=== PATIENT | female | born 1980 | race Two or more races ===

== ENCOUNTER 2020-12-12 06:23 | Inpatient (IN) | payer BC, OTHER ==
[2020-12-12 07:33] VITALS: BMI 28.1
[2020-12-12] MEDS ORDERED: ONDANSETRON 4 MG/2 ML VIAL IVPUSH PRN (07:58)
[2020-12-12] MEDS ORDERED: ACETAMINOPHEN 325 MG TABLET (FP) PO PRN (07:58)
[2020-12-12] MEDS ORDERED: BUPIVACAINE HCL/PF 0.5% (5MG/ML) 10 ML VIAL ONE (08:09)
[2020-12-12] MEDS ORDERED: morphine SULFATE (PF) 1 MG/2 ML SYRINGE ONE (08:16)
[2020-12-12] MEDS ORDERED: PHENYLEPHRINE HCL 10 MG/1 ML SINGLE DOSE VIAL ONE (08:18)
[2020-12-12] MEDS ORDERED: ePHEDrine SULFATE 50 MG/1 ML AMPULE ONE (08:34)
[2020-12-12] MEDS ORDERED: ceFAZolin SODIUM 1 GM VIAL ONE ×2 (09:10)
[2020-12-12] MEDS ORDERED: OXYTOCIN 10 UNIT/ML 10ML MDV ONE (09:10)
[2020-12-12] MEDS ORDERED: MIDAZOLAM HCL 2 MG/2 ML SINGLE DOSE VIAL ONE ×3 (09:11→09:54)
[2020-12-12 09:34] LABS: CORD BASE EXCESS -1.3 mmol/L (0-2); CORD PCO2 60.6 mmHg (30-78); CORD pH 7.266 (7.14-7.44)
[2020-12-12 09:39] LABS: CORD BASE EXCESS -5.3 mmol/L (0-2); CORD HCO3 20.4 mmHg (20-29); CORD PCO2 40.4 mmHg (30-78); CORD pH 7.321 (7.14-7.44)
[2020-12-12] MEDS ORDERED: METHYLERGONOVINE MALEATE 0.2 MG/1 ML AMP IM PRN (10:35)
[2020-12-12] MEDS ORDERED: CITRIC ACID/SODIUM CITRATE 30 ML UNIT-DOSE CUP PO ONE (10:45)
[2020-12-12] MEDS: OXYTOCIN 20 UNITS in 0.9% NS 20 UNIT/1,000 ML INFUS.BAG IV SCH (10:46)
[2020-12-12] MEDS ORDERED: OXYTOCIN 20 UNITS in 0.9% NS 20 UNIT/1,000 ML INFUS.BAG IV ONE (10:47)
[2020-12-12] MEDS: ACETAMINOPHEN 1000 MG/100 ML VIAL IVPB PRN ×2 (11:54→19:55)
[2020-12-12] MEDS ORDERED: ACETAMINOPHEN INJECTION 100 ML IVPB ONE (11:56)
[2020-12-12] MEDS ORDERED: morphine SULFATE 4 MG/ML VIAL IVPUSH ONE (11:56)
[2020-12-13] MEDS: ACETAMINOPHEN 1000 MG/100 ML VIAL IVPB PRN (04:19)
[2020-12-13] MEDS: SIMETHICONE 80 MG TAB.CHEW (FP) PO PRN ×3 (08:42→20:03)
[2020-12-13] MEDS: IBUPROFEN 600 MG TABLET (FP) PO PRN ×2 (08:42→14:45)
[2020-12-13 09:01] LABS: BASO % 0.1 % (0-2.0); EOS % 1.3 % (0-4.5); HEMATOCRIT 33.7 % (32.4-45.2); HEMOGLOBIN 11.5 GM/dL (10.7-15.3); LYMPH % 8.8 % (8-40); MCH 32.7 pg (25.7-33.7); MCHC 34.2 g/dl (32.0-36.0); MEAN CELL VOLUME 95.7 fl (80-96); MEAN PLT VOLUME 8.9 fl (7.5-11.1); MONO % 8.2 % (3.8-10.2); NEUT % 81.6 % (42.8-82.8); PLATELET COUNT 246 10^3/uL (134-434); RBC 3.52 M/mm3 (3.60-5.2); RDW 14.9 % (11.6-15.6); WHITE BLOOD COUNT 19.7 K/mm3 (4.0-10.0)
[2020-12-13] MEDS ORDERED: BISACODYL 10 MG SUPP.RECT RC PRN (10:35)
[2020-12-13] MEDS: oxyCODONE HCL 5 MG TABLET PO PRN (20:01)
[2020-12-13 20:10] VITALS: BP 117/60
[2020-12-13] MEDS: OXYTOCIN 20 UNITS in 0.9% NS 20 UNIT/1,000 ML INFUS.BAG IV SCH (21:18)
[2020-12-14] MEDS: oxyCODONE HCL 5 MG TABLET PO PRN ×2 (02:59→12:34)
[2020-12-14] MEDS: SIMETHICONE 80 MG TAB.CHEW (FP) PO PRN ×5 (02:59→18:13)
[2020-12-14] MEDS: IBUPROFEN 600 MG TABLET (FP) PO PRN ×2 (10:36→18:11)
[2020-12-14 15:25] VITALS: PULSE 73; TEMP 98.6
== END 2020-12-14 18:40 | disposition home or self-care (01) | DRG 788 ==
LOC: JLDR 06:23 → J3W 11:55
PROVIDERS: ADMIT Obstetrics & Gynecology Maternal & Fetal Medicine; ATTEND Obstetrics & Gynecology Maternal & Fetal Medicine
PROC: 10D00Z1 Extraction of Products of Conception, Low, Open Approach (ICD-10-PCS; principal; 2020-12-12)
PROC: 0UB90ZZ Excision of Uterus, Open Approach (ICD-10-PCS; 2020-12-12)
DX: O44.03 Complete placenta previa NOS or without hemorrhage, third trimester (principal); O34.13 Maternal care for benign tumor of corpus uteri, third trimester; Z3A.37 37 weeks gestation of pregnancy; Z37.0 Single live birth
CPT/HCPCS: 36415; 36600; 82803; 85025; 86762; 88305-TC; 88307-TC; J0131